=== PATIENT | male | born 1955 | race African-American/Black ===

== ENCOUNTER 2019-02-23 09:22 | Outpatient (CLI) | payer BC ==
--- NOTE | 2019-02-23 10:26 | ULT ---
EXAM: US Gallbladder RUQ CLINICAL HISTORY: Multiple years of periumbilical pain.. COMPARISON: None. FINDINGS: Pancreas: Obscured by bowel gas. Liver:Subtle iso to hyperechoic focus in the right hepatic lobe measuring 0.8 x 1.4 x 1.2 cm. Additio nal hepatic masses are not appreciated. Overall, the remainder the hepatic parenchyma has a normal echotexture. No intrahepatic biliary dilatation. The contour of the hepatic margin is maintained. Rig ht hepatic lobe measures 17.1 cm. Gallbladder: No sonographic evidence of cholelithiasis, gallbladder wall thickening or pericholecysti c fluid. Sky's sign:Negative Bile ducts: 0.5 cm Main portal vein is patent. Appropriate directional flow Right kidney: No hydronephrosis. 0.8 x 1.1 x 1.4 cm anechoic focus compatible with a cyst. Right kidn ey measuring 11.3 x 5.3 x 4.4 cm in length. IMPRESSION: 1. Hyperechoic focus in the right hepatic lobe which may represent hemangioma. Correlation made with CT from 10/06/2016 does not demonstrate corresponding lesion. Given the findings on the current study, abdomen MRI versus liver mass protocol CT is recommended. 2. No sonographic evidence of cholelithiasis or cholecystitis. CODE T
== END 2019-02-23 09:23 | disposition home or self-care (01) ==
LOC: BICULT 09:22
PROVIDERS: ATTEND Internal Medicine Gastroenterology
DX: K62.5 Hemorrhage of anus and rectum (principal); R10.33 Periumbilical pain; K64.8 Other hemorrhoids; Z86.010 Personal history of colon polyps; Z80.0 Family history of malignant neoplasm of digestive organs
CPT/HCPCS: 76705

== ENCOUNTER 2019-03-15 08:35 | Outpatient (CLI) | payer BC ==
[2019-03-15 09:20] LABS: Estimated GFR-MDRD - POC Greater than 90
--- NOTE | 2019-03-15 10:56 | CT ---
PRE AND POSTCONTRAST ENHANCED CT IMAGES ABDOMEN: HISTORY: Patient with lower abdominal pain, occasional diarrhea, hepatic abnormalities. FINDINGS: Pre- and postcontrast-enhanced CT images abdomen obtained. Dynamic imaging performed. The lung bases are unremarkable. No definite evidence of hepatic parenchymal mass is seen. The area of hyperechogenicity seen on sonography likely represents an area of focal fatty infiltratio n. No other hepatic parenchymal lesion is seen. The spleen is unremarkable. The pancreas is unremarkable. The gallbladder is unremarkable. Adrenal gland is unremarkable. Numerous bilateral renal cortical cysts seen. The largest of these in the mid pole of the left kidne y appearing to be a Bosniak type II cyst measuring 2.4 x 2.0 cm. This appears to have some minimal a reas of calcifications and minimal septae. No focal nodular enhancement seen. No evidence of atherosclerotic calcification is seen in the renal arteries, SMA, and celiac arteries. Some mild atherosclerotic change is seen in the abdominal aorta. IMPRESSION: No definite evidence of hepatic parenchymal mass is seen. POS: C
== END 2019-03-15 08:36 | disposition home or self-care (01) ==
LOC: SCSCT 08:35
PROVIDERS: ATTEND Internal Medicine Gastroenterology
DX: R93.2 Abnormal findings on diagnostic imaging of liver and biliary tract (principal)
CPT/HCPCS: 74170; 82565

== ENCOUNTER 2019-09-03 14:44 | Outpatient (CLI) | payer BC ==
--- NOTE | 2019-09-03 15:46 | ULT ---
Exam: Bilateral renal ultrasound HISTORY: Renal cyst COMPARISON: None Correlation: Abdomen and pelvic CT 03/15/2019 FINDINGS: Right kidney: Normal cortical echotexture. No hydronephrosis. Anechoic focus in the upper pole the ri ght kidney measures 1.2 x 1.0 x 0.9 cm, compatible with a cyst. Right kidney measurements: 10.2 x 5.8 x 4.6 cm. Left kidney: Normal cortical echotexture. No hydronephrosis. Anechoic focus in the lower pole measure s 2.3 x 3.0 x 1.7 cm. Second anechoic focus in the mid to upper pole measures 2.4 x 1.9 x 2.5 cm. Third cyst is noted in the mid pole. Left kidney measurements 6.4 x 5.6 x 11.3 cm. cm. Urinary bladder: Normal mucosa. IMPRESSION: 1. Bilateral renal cortical cyst. 2. Bilaterally no hydronephrosis.
== END 2019-09-03 14:45 | disposition home or self-care (01) ==
LOC: BICULT 14:44
PROVIDERS: ATTEND Urology
DX: N28.1 Cyst of kidney, acquired (principal)
CPT/HCPCS: 76770

== ENCOUNTER 2020-07-17 07:27 | Outpatient (CLI) | payer BC ==
--- NOTE | 2020-07-17 16:34 | CT ---
CT chest with IV contrast CT abdomen and pelvis with IV and oral contrast HISTORY: Malignant neoplasm of overlapping sites of stomach. Restaging. COMPARISON: 01/27/2020. FINDINGS: Emphysematous changes are present at the hyperinflated lung apices. Calcified granulomata a nd mediastinal lymph nodes are consistent with healed granulomatous disease. No soft tissue density lung mass or mediastinal adenopathy. Right internal jugular Port-A-Cath in place. Bovine origin of the great vessels at the aortic arch. Extensive postoperative changes of the stomach. Apparent resection of the antrum. No focal mass or ob struction evident. Cysts arise from the cortex of the right kidney, measuring up to 1.1 cm greatest diameter at the supe rior pole of the right kidney and 2.3 cm at the lateral margin of the left kidney. Solid organs are intact. No free fluid or free air. Urinary bladder has a normal appearance. Mild degenerative changes throughout the thoracolumbar spine. IMPRESSION : Interval partial gastrectomy. No evidence of recurrent disease. Chronic-type findings are stable.
== END 2020-07-17 07:28 | disposition home or self-care (01) ==
LOC: SCSCT 07:27
PROVIDERS: ATTEND Internal Medicine Hematology & Oncology
DX: C16.8 Malignant neoplasm of overlapping sites of stomach (principal); D70.8 Other neutropenia; Z90.3 Acquired absence of stomach [part of]
CPT/HCPCS: 71260; 74177

== ENCOUNTER 2020-10-16 10:07 | Outpatient (CLI) | payer BC ==
[2020-10-16 10:28] LABS: Estimated GFR-MDRD - POC Greater than 90
--- NOTE | 2020-10-16 10:57 | CT ---
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 Pat ient has history of prior gastrectomy. Patient complains of left-sided chest and shoulder pain. COMPARISON: 07/17/2020 FINDINGS: CT THORAX: Lungs: Emphysematous changes are again seen within the lungs bilaterally with bullous emphysematous c hanges in the upper lobes. There are scattered stable chronic interstitial lung changes in the upper lung zones. There is a small nonspecific subpleural pulmonary nodule at the right posterior cos tophrenic angle measuring approximately 4 mm. No additional pulmonary nodule or mass is seen. Pleura: No pleural effusion. Lymph nodes: No enlarged lymph nodes are seen by CT size criteria. Mediastinum: Calcified left hilar lymph nodes are seen related to prior granulomatous disease. Thorac ic aorta is normal in caliber without evidence of an aortic dissection. A right-sided Mediport catheter remains in place. Chest wall: No abnormalities CT ABDOMEN AND PELVIS: Liver: Within normal limits. Gallbladder: Within normal limits. \ Pancreas: Within normal limits. Spleen: Within normal limits. Adrenal glands: Within normal limits. Kidneys: Subcentimeter too small to characterize hypodense lesions in each kidney with stable left re nal cyst. No hydronephrosis is present. Urinary Bladder: The urinary bladder is unremarkable. Reproductive organs: Within normal limits for patient's age. Bowel: Postoperative changes stomach related to partial gastrectomy are noted. Opacified loops of sma ll bowel are normal in caliber. Adenopathy:No enlarged lymph nodes are seen by CT size criteria. Peritoneum: No free fluid or fluid collection is seen. No free intraperitoneal gas is identified. Abdominal wall: No abnormalities visualized. Osseous structures: No suspicious lytic or sclerotic osseous lesion. IMPRESSION: 1. Evidence of partial gastrectomy. 2. Subcentimeter nonspecific subpleural nodular density right posterior costophrenic angle. There are otherwise no CT findings to suggest metastatic disease normal chest, abdomen, or pelvis.
[2020-10-16] MEDS ORDERED: Iopamidol 370 76% 100 ML VIAL ONE (13:42)
== END 2020-10-16 10:08 | disposition home or self-care (01) ==
LOC: BICCT 10:07
PROVIDERS: ATTEND Internal Medicine Hematology & Oncology
DX: C16.8 Malignant neoplasm of overlapping sites of stomach (principal); J98.4 Other disorders of lung; Z90.3 Acquired absence of stomach [part of]
CPT/HCPCS: 71260; 74177; 80053; 82378; 82565; 82607; 82728; Q9967

== ENCOUNTER 2020-12-11 08:24 | Outpatient (CLI) | payer BC ==
[2020-12-11 09:51] LABS: Estimated GFR-MDRD - POC Greater than 90
[2020-12-11] MEDS ORDERED: Iopamidol-370 76% 500 ML 1 ML ONE (13:27)
== END 2020-12-11 08:25 | disposition home or self-care (01) ==
LOC: BICCT 08:24
PROVIDERS: ATTEND Internal Medicine Hematology & Oncology
DX: C16.8 Malignant neoplasm of overlapping sites of stomach (principal); D70.8 Other neutropenia; J44.9 Chronic obstructive pulmonary disease, unspecified; Z90.49 Acquired absence of other specified parts of digestive tract
CPT/HCPCS: 71260; 82565; Q9967

== ENCOUNTER 2021-03-09 10:02 | Outpatient (CLI) | payer BC ==
[2021-03-09 10:25] LABS: Estimated GFR-MDRD - POC Greater than 90
== END 2021-03-09 10:03 | disposition home or self-care (01) ==
LOC: BICCT 10:02
PROVIDERS: ATTEND Internal Medicine Hematology & Oncology
DX: C16.8 Malignant neoplasm of overlapping sites of stomach (principal); R91.1 Solitary pulmonary nodule
CPT/HCPCS: 71260; 74160; 82565

== ENCOUNTER 2021-07-07 07:45 | Outpatient (CLI) | payer BC ==
[2021-07-07] MEDS ORDERED: Iopamidol-370 76% 500 ML 1 ML ONE (13:22)
== END 2021-07-07 07:46 | disposition home or self-care (01) ==
LOC: BICCT 07:45
PROVIDERS: ATTEND Internal Medicine Hematology & Oncology
DX: R91.8 Other nonspecific abnormal finding of lung field (principal); C16.8 Malignant neoplasm of overlapping sites of stomach; D70.8 Other neutropenia
CPT/HCPCS: 71260; 82565; Q9967

== ENCOUNTER 2021-11-11 12:45 | Outpatient (CLI) | payer BC ==
[~2021-11-11 12:45] MED LIST: Iopamidol-370 76% 500 ML 1 ML ONE
[2021-11-11 13:08] LABS: Estimated GFR-MDRD - POC Greater than 90
== END 2021-11-11 12:46 | disposition home or self-care (01) ==
LOC: BICCT 12:45
PROVIDERS: ATTEND Internal Medicine Hematology & Oncology
DX: C16.8 Malignant neoplasm of overlapping sites of stomach (principal); R91.1 Solitary pulmonary nodule; D70.8 Other neutropenia; J98.4 Other disorders of lung
CPT/HCPCS: 71260; 74177; 82565; Q9967

== ENCOUNTER 2022-03-18 08:03 | Outpatient (CLI) | payer BC ==
[2022-03-18 09:28] LABS: Estimated GFR-MDRD - POC Greater than 90
== END 2022-03-18 08:04 | disposition home or self-care (01) ==
LOC: BICCT 08:03
PROVIDERS: ATTEND Internal Medicine Hematology & Oncology
DX: C16.8 Malignant neoplasm of overlapping sites of stomach (principal); R91.1 Solitary pulmonary nodule; D70.8 Other neutropenia
CPT/HCPCS: 71260; 74177; 82565

== ENCOUNTER 2022-07-22 10:24 | Outpatient (CLI) | payer BC | END 2022-07-22 10:25 | disposition home or self-care (01) | LOC: BICCT 10:24 | PROVIDERS: ATTEND Internal Medicine Hematology & Oncology | DX: C16.8 Malignant neoplasm of overlapping sites of stomach (principal); R91.1 Solitary pulmonary nodule | CPT/HCPCS: 71260; 74177; 82565 ==

== ENCOUNTER 2023-01-20 09:04 | Outpatient (CLI) | payer BC ==
[2023-01-20] MEDS ORDERED: Iopamidol-370 76% 500 ML 1 ML ONE (17:48)
== END 2023-01-20 09:05 | disposition home or self-care (01) ==
LOC: BICCT 09:04
PROVIDERS: ATTEND Internal Medicine Hematology & Oncology
DX: C16.8 Malignant neoplasm of overlapping sites of stomach (principal); D70.8 Other neutropenia; R91.1 Solitary pulmonary nodule; Z90.49 Acquired absence of other specified parts of digestive tract
CPT/HCPCS: 71260; 74177; 82565; Q9967

== ENCOUNTER 2023-12-20 07:32 | Outpatient (CLI) | payer BC ==
[2023-12-20] MEDS ORDERED: Iopamidol-370 76% 500 ML MDV (1 ML CHARGE) ONE (10:12)
== END 2023-12-20 07:33 | disposition home or self-care (01) ==
LOC: BICCT 07:32
PROVIDERS: ATTEND Internal Medicine Hematology & Oncology
DX: C16.8 Malignant neoplasm of overlapping sites of stomach (principal); R91.1 Solitary pulmonary nodule
CPT/HCPCS: 71260; 74177; 82565

== ENCOUNTER 2025-09-24 09:15 | Outpatient (CLI) | payer BC ==
[2025-09-24] MEDS ORDERED: Iopamidol 370 76% 100 ML VIAL ONE (11:49)
== END 2025-09-24 09:16 | disposition home or self-care (01) ==
LOC: CT 09:15
PROVIDERS: ATTEND Internal Medicine Hematology & Oncology
DX: C16.8 Malignant neoplasm of overlapping sites of stomach (principal); C22.1 Intrahepatic bile duct carcinoma; D70.8 Other neutropenia; R91.1 Solitary pulmonary nodule
CPT/HCPCS: 71260; 74177; Q9967